=== PATIENT | female | born 1965 | race African-American/Black ===

== ENCOUNTER 2018-05-02 01:06 | Emergency (ER) | payer BC ==
[~2018-05-02] VITALS: Ht 160 cm; Wt 76.0 kg
[2018-05-02 07:20] VITALS: BP 150/91
== END 2018-05-02 07:55 | disposition left against medical advice (07) ==
LOC: ER 01:06
DX: Z53.21 Procedure and treatment not carried out due to patient leaving prior to being seen by health care provider (principal)
CPT/HCPCS: X7700; Z7610